=== PATIENT | male | born 1980 | race Hispanic/Latino ===

== ENCOUNTER 2022-05-06 19:12 | Emergency (ER) | payer SELFPAY | END 2022-05-06 20:00 | disposition home or self-care (01) | LOC: CSHERS 19:12 | DX: R05.9 Cough, unspecified (principal); R09.81 Nasal congestion; R09.89 Other specified symptoms and signs involving the circulatory and respiratory systems; Z20.822 Contact with and (suspected) exposure to COVID-19; Z79.84 Long term (current) use of oral hypoglycemic drugs | CPT/HCPCS: 99283; U0003; U0005 ==